=== PATIENT | male | born 1965 | race Caucasian/White ===

== ENCOUNTER → 2016-11-24 | Outpatient (CLI) | payer BC ==
[~2016-11-24] MED LIST: CIPRO500 MG PO; CLARITIN-D 21 TABLET PO; COLACE100 MG PO; DOCUSATE SODIU100 MG PO; LIPITOR10 MG PO; LOSARTAN POTASS25 MG PO; OXYCODONE HCL5 MG PO; OXYCONTIN10 MG PO; PERCOCET 5/31 TABLET PO; TAMSULOSIN HCL0.4 MG PO; ZYLOPRIM300 MG PO
== END | disposition home or self-care (01) ==
LOC: CDC 14:43
DX: K64.9 Unspecified hemorrhoids (principal); L72.3 Sebaceous cyst; R00.1 Bradycardia, unspecified; R94.31 Abnormal electrocardiogram [ECG] [EKG]
CPT/HCPCS: 93000

== ENCOUNTER 2016-11-25 07:08 | Day surgery (SDC) | payer BC ==
[~2016-11-25] VITALS: Ht 190.5 cm; Wt 99.8 kg
[~2016-11-25 07:08] MED LIST changes: -COLACE100 MG PO; -OXYCONTIN10 MG PO; -PERCOCET 5/31 TABLET PO
[2016-11-25 07:42] VITALS: BP 150/90
[2016-11-25] MEDS ORDERED: OXYCONTIN10 MG PO (11:03)
[2016-11-25] MEDS ORDERED: COLACE100 MG PO (11:03)
[2016-11-25] MEDS ORDERED: PERCOCET 5/31 TABLET PO (11:03)
[2016-11-25 11:50] VITALS: BP 143/87
[2016-11-25 12:51] VITALS: BP 116/71
[2016-11-25 13:49] VITALS: BP 121/60
== END 2016-11-25 14:04 | disposition home or self-care (01) ==
LOC: SDC
DX: K64.8 Other hemorrhoids (principal); K64.4 Residual hemorrhoidal skin tags; L72.0 Epidermal cyst; L72.11 Pilar cyst; I10 Essential (primary) hypertension; E78.1 Pure hyperglyceridemia; M10.9 Gout, unspecified; E78.5 Hyperlipidemia, unspecified; R73.03 Prediabetes; Z82.49 Family history of ischemic heart disease and other diseases of the circulatory system
CPT/HCPCS: 88304; J0330; J0585; J1100; J1170; J1885; J2250; J2405; J3010; S0020